=== PATIENT | female | born 1985 | race Two or more races ===

== ENCOUNTER 2021-07-11 10:59 | Outpatient (CLI) | payer OTHER ==
[~2021-07-11 10:59] MED LIST: HUMALOG MIX 75/10 ML; LANTUS SOLOSTAR3 ML
== END 2021-07-11 11:13 | disposition home or self-care (01) ==
LOC: TOM 10:59
PROVIDERS: ATTEND Otolaryngology
DX: J34.2 Deviated nasal septum (principal)

== ENCOUNTER 2022-02-20 14:17 | Outpatient (CLI) | payer OTHER | END 2022-02-20 14:26 | disposition home or self-care (01) | LOC: RAD 14:17 | PROVIDERS: ATTEND Physical Medicine & Rehabilitation | DX: M25.561 Pain in right knee (principal) ==

== ENCOUNTER 2022-03-14 15:46 | Outpatient (CLI) | payer OTHER | END 2022-03-14 15:48 | disposition home or self-care (01) | LOC: RAD 15:46 | PROVIDERS: ATTEND Physical Medicine & Rehabilitation | DX: M41.9 Scoliosis, unspecified (principal) ==

== ENCOUNTER 2025-01-13 14:31 | Outpatient (CLI) | payer OTHER, BC | END 2025-01-13 14:40 | disposition home or self-care (01) | LOC: RAD 14:31 | PROVIDERS: ATTEND Specialist | DX: N83.209 Unspecified ovarian cyst, unspecified side (principal); M25.511 Pain in right shoulder; M25.561 Pain in right knee ==

== ENCOUNTER 2025-10-16 16:50 | Emergency (ER) | payer OTHER ==
[~2025-10-16] VITALS: Ht 170.2 cm; Wt 65.8 kg
[2025-10-16] MEDS ORDERED: ADDERALL 20 MG20 MG PO (17:13)
[2025-10-16 20:45] LABS: BASO % 0.5 % (0.1-1.2); EOS # 0.08 (0.04-0.54); EOS % 1.0 % (0.7-7.0); LYMPH # 1.56 (1.18-3.74); LYMPH % 18.7 % (19.3-53.1); MEAN PLATELET VOLUME 10.30 fl (9.4-12.4); MONO # 0.79 (0.24-0.82); MONO % 9.5 % (4.7-12.5); NEUT # 5.83 (1.56-6.13); NEUT % 69.9 % (34.0-71.1); RED CELL DISTRIBUTION WIDTH 12.3 % (11.6-14.4)
[2025-10-16 20:54] LABS: URINE APPEARANCE Clear; URINE BILIRRUBIN Negative (NEGATIVE); URINE BLOOD Negative; URINE COLOR Yellow; URINE GLUCOSE Negative (NEGATIVE); URINE KETONE Negative (NEGATIVE); URINE LEUKOCYTE Negative; URINE NITRATE Negative; URINE PROTEIN Negative (NEGATIVE); URINE UROBILINOGEN 0.2 E.U./dl
[2025-10-16 20:59] LABS: URINE BACTERIA 1004.2 uL (0.0-1933); URINE EPITHELIAL CELLS 21.8 uL (0.0-38.8); URINE RBC 5.5 uL (0.0-20.8); URINE WBC 4.1 uL (0.0-23.2)
[2025-10-16 21:01] LABS: URINE CAST 0.14 uL (0.0-1.40)
[2025-10-16 21:26] LABS: ALT/SGPT 24.0 U/L (12-78); AST/SGOT 18.0 U/L (15-37); BILIRUBIN TOTAL 0.48 mg/dL (0.3-1.2); BUN CREA RATIO 9.0 (7.0-25.0); CREATININE SERUM 0.68 mg/dL (0.55-1.02); GFR 95.83; GLOBULINA 3.2 G/DL (2.4-3.5); GLUCOSE FASTING 184.0 mg/dL (65-100); OSMOLALITY SERUM 282.0 MOSM/KG (275-295)
[2025-10-16] MEDS ORDERED: MIRALAX17 GM PO (22:46)
== END 2025-10-16 23:29 | disposition home or self-care (01) ==
LOC: ER 16:51
PROVIDERS: General Practice
DX: K59.00 Constipation, unspecified (principal); R10.84 Generalized abdominal pain; Z88.0 Allergy status to penicillin; Z88.2 Allergy status to sulfonamides